=== PATIENT | male | born 1990 | race Caucasian/White ===

== ENCOUNTER → 2017-01-18 02:49 | Emergency (ER) | payer BC ==
[2017-01-18 08:22] LABS: Albumin 4.3 g/dL (3.2-5.2); BUN/Creatinine Ratio 10.8 (8-20); Calcium 9.7 mg/dL (8.6-10.3); EGFR African American 124.4 (>60); EGFR Non-African American 96.7 (>60); Globulin 2.8 g/dL (2-4); Potassium 3.9 mmol/L (3.5-5.0); Total Bilirubin 0.9 mg/dL (0.2-1.0); Total Protein 7.1 g/dL (6.4-8.9)
[2017-01-18 08:25] LABS: Hematocrit 46 % (42-52); Hemoglobin 15.9 g/dl (14.0-18.0); Mean Corpuscular HGB Conc 34 g/dl (31-36); Mean Corpuscular Hemoglobin 31 pg (27-31); Mean Corpuscular Volume 89 fL (80-94); Mean Platelet Volume 9 um3 (7.4-10.4); Red Blood Count 5.19 10^6/ul (4.0-5.4); Red Cell Distribution Width 12 % (10.5-15); Urine Bacteria Absent (Absent); Urine Bilirubin Negative (Negative); Urine Glucose Negative (Negative); Urine Nitrite Negative (Negative); White Blood Count 6.5 10^3/ul (3.5-10.8)
--- NOTE | 2017-01-19 10:06 | RAD ---
HISTORY: Chest pain COMPARISONS: None VIEWS: 4: Frontal dual-energy and lateral views of the chest. FINDINGS: CARDIOMEDIASTINAL SILHOUETTE: The cardiomediastinal silhouette is normal. SHOBHA: The shobha are normal. PLEURA: The costophrenic angles are sharp. No pleural abnormalities are noted. LUNG PARENCHYMA: The lungs are clear. ABDOMEN: The upper abdomen is clear. There is no subphrenic gas. BONES AND SOFT TISSUES: No bone or soft tissue abnormalities are noted. OTHER: None. IMPRESSION: NO ACTIVE CARDIOPULMONARY DISEASE.
--- NOTE | 2017-01-31 01:19 | ED ---
Abraham Bailey Nilda, scribed for Floyd Espinoza MD on 01/18/17 at 2318 . Abdominal Pain/Male - HPI Summary HPI Summary: This patient is a 26 year old M presenting to [facility] with a chief complaint of constant mild dull left flank pain that radiates to back for the past 2 days. Symptoms aggravated and alleviated by nothing. Patient reports fever (2 days), chills, occasional dizziness, and occasional SOB associated with pain. Patient denies burning with urination, frequency, penile discharge, cough, and edema. 1 week ago lymph nodes under armpits were swollen but have resolved. - History of Current Complaint Hx Obtained From: Patient Onset/Duration: Lasting Days - 2 days, Still Present Timing: Constant Location: Flank - Left Radiates: Yes Radiates to: Back Character: Dull Aggravating Factor(s): Nothing Alleviating Factor(s): Nothing Associated Signs And Symptoms: Positive: Fever, Dizzy PMH/Surg Hx/FS Hx/Imm Hx Cardiovascular History: Denies: Hx Hypertension GI History: Reports: Other GI Disorders - Rectal fissure - Surgical History Surgery Procedure, Year, and Place: ROSS Infectious Disease History: Denies: Traveled Outside the [place] in Last 30 Days - Family History Known Family History: Positive: Other - No DVT, PE - Social History Occupation: Employed Full-time - Agriculture Hx Tobacco Use: No Smoking Status (MU): Never Smoked Tobacco Review of Systems Positive: Fever - 2 days, Chills Positive: Shortness Of Breath - Occasional - associated with back pain. Negative: Cough Positive: flank pain - left. Negative: dysuria, discharge, frequency Positive: Other - Back pain. Negative: Edema Neurological: Other - Dizziness (occasional) All Other Systems Reviewed And Are Negative: Yes Physical Exam - Summary Physical Exam Summary: Physical Exam Findings Appearance: Well-appearing, Well-nourished Skin: Warm, Dry, No rash Eyes: Normal, PERRL, EOMI, sclera anicteric ENT: Normal Neck: Supple, nontender Respiratory: Clear to auscultation Cardiovascular: S1, S2, no murmur, no rub, no gallop Abdomen: Soft, nontender, no organomegaly Bowel sounds: Present Musculoskeletal: Normal, Strength/ROM Intact, no edema, pulses symmetrical Neurological: Normal, A&Ox3, cranial nerves 2-12 wnl, follows commands, gait not tested, sensation intact to pin and light touch Psychiatric: affect normal, behavior appropriate, dressed appropriately, judgment intact Triage Information Reviewed: Yes Diagnostics - Laboratory Lab Results: Lab Results 01/18/17 01/18/17 01/18/17 Range/Units 04:36 04:36 04:36 WBC 6.5 (3.5-10.8) 10^3/ul RBC 5.19 (4.0-5.4) 10^6/ul Hgb 15.9 (14.0-18.0) g/dl Hct 46 (42-52) % MCV 89 (80-94) fL MCH 31 (27-31) pg MCHC 34 (31-36) g/dl RDW 12 (10.5-15) % Plt Count 193 (150-450) 10^3/ul MPV 9 (7.4-10.4) um3 Neut % (Auto) 52.4 (38-83) % Lymph % (Auto) 33.1 (25-47) % Rapides % (Auto) 9.7 H (1-9) % Eos % (Auto) 4.3 (0-6) % Baso % (Auto) 0.5 (0-2) % Absolute Neuts (auto) 3.4 (1.5-7.7) 10^3/ul Absolute Lymphs (auto) 2.2 (1.0-4.8) 10^3/ul Absolute Monos (auto) 0.6 (0-0.8) 10^3/ul Absolute Eos (auto) 0.3 (0-0.6) 10^3/ul Absolute Basos (auto) 0 (0-0.2) 10^3/ul Absolute Nucleated RBC 0 10^3/ul Nucleated RBC % 0.1 D-Dimer, Quantitative (Less Than 230) ng/mL Sodium 138 (133-145) mmol/L Potassium 3.9 (3.5-5.0) mmol/L Chloride 104 (101-111) mmol/L Carbon Dioxide 30 (22-32) mmol/L Anion Gap 4 (2-11) mmol/L BUN 10 (6-24) mg/dL Creatinine 0.93 (0.67-1.17) mg/dL Est GFR ( Amer) 124.4 (>60) Est GFR (Non-Af Amer) 96.7 (>60) BUN/Creatinine Ratio 10.8 (8-20) Glucose 96 (70-100) mg/dL Calcium 9.7 (8.6-10.3) mg/dL Total Bilirubin 0.90 (0.2-1.0) mg/dL AST 16 (13-39) U/L ALT 18 (7-52) U/L Alkaline Phosphatase 84 (34-104) U/L Total Protein 7.1 (6.4-8.9) g/dL Albumin 4.3 (3.2-5.2) g/dL Globulin 2.8 (2-4) g/dL Albumin/Globulin Ratio 1.5 (1-3) Urine Color Yellow Urine Appearance Clear Urine pH 6.0 (5-9) Ur Specific Duncan 1.012 (1.010-1.030) Urine Protein Negative (Negative) Urine Ketones Negative (Negative) Urine Blood Negative (Negative) Urine Nitrate Negative (Negative) Urine Bilirubin Negative (Negative) Urine Urobilinogen Negative (Negative) Ur Leukocyte Esterase Negative (Negative) Urine WBC (Auto) Trace(0-5/hpf) (Absent) Urine RBC (Auto) Absent (Absent) Urine Bacteria Absent (Absent) Hyaline Casts Present H (Absent) Urine Glucose Negative (Negative) 01/18/17 Range/Units 04:36 WBC (3.5-10.8) 10^3/ul RBC (4.0-5.4) 10^6/ul Hgb (14.0-18.0) g/dl Hct (42-52) % MCV (80-94) fL MCH (27-31) pg MCHC (31-36) g/dl RDW (10.5-15) % Plt Count (150-450) 10^3/ul MPV (7.4-10.4) um3 Neut % (Auto) (38-83) % Lymph % (Auto) (25-47) % Rapides % (Auto) (1-9) % Eos % (Auto) (0-6) % Baso % (Auto) (0-2) % Absolute Neuts (auto) (1.5-7.7) 10^3/ul Absolute Lymphs (auto) (1.0-4.8) 10^3/ul Absolute Monos (auto) (0-0.8) 10^3/ul Absolute Eos (auto) (0-0.6) 10^3/ul Absolute Basos (auto) (0-0.2) 10^3/ul Absolute Nucleated RBC 10^3/ul Nucleated RBC % D-Dimer, Quantitative < 200 (Less Than 230) ng/mL Sodium (133-145) mmol/L Potassium (3.5-5.0) mmol/L Chloride (101-111) mmol/L Carbon Dioxide (22-32) mmol/L Anion Gap (2-11) mmol/L BUN (6-24) mg/dL Creatinine (0.67-1.17) mg/dL Est GFR ( Amer) (>60) Est GFR (Non-Af Amer) (>60) BUN/Creatinine Ratio (8-20) Glucose (70-100) mg/dL Calcium (8.6-10.3) mg/dL Total Bilirubin (0.2-1.0) mg/dL AST (13-39) U/L ALT (7-52) U/L Alkaline Phosphatase (34-104) U/L Total Protein (6.4-8.9) g/dL Albumin (3.2-5.2) g/dL Globulin (2-4) g/dL Albumin/Globulin Ratio (1-3) Urine Color Urine Appearance Urine pH (5-9) Ur Specific Duncan (1.010-1.030) Urine Protein (Negative) Urine Ketones (Negative) Urine Blood (Negative) Urine Nitrate (Negative) Urine Bilirubin (Negative) Urine Urobilinogen (Negative) Ur Leukocyte Esterase (Negative) Urine WBC (Auto) (Absent) Urine RBC (Auto) (Absent) Urine Bacteria (Absent) Hyaline Casts (Absent) Urine Glucose (Negative) Result Diagrams: 01/18/17 04:36 01/18/17 04:36 Lab Statement: Any lab studies that have been ordered have been reviewed, and results considered in the medical decision making process. - Radiology CXR Xray Interpretation: No Acute Changes - NAD Radiology Interpretation Completed By: ED Physician - EKG 0327 Cardiac Rate: NL EKG Rhythm: Sinus Rhythm EKG Interpretation: 62 bpm, normal axis, normal intervals - Additional Comments Diagnostic Additional Comments: D-Dimer: WNL Re-Evaluation - Re-Evaluation First Eval Re-Evaluation Time: 04:37 Comment: Discussed labs and plan for D/C. Abdominal Pain Fem Course/Dx - Course Assessment/Plan: This patient is a 26 year old M presenting to [facility] with a chief complaint of constant mild dull left flank pain that radiates to back for the past 2 days. Patient reports fever (2 days), chills, occasional dizziness, and occasional SOB associated with pain. Patient denies burning with urination, frequency, penile discharge, cough, and edema. 1 week ago lymph nodes under armpits were swollen but have resolved. D-dimer: wnl. CXR: NAD. EKG: [0327] NSR 62 bpm, normal axis, normal intervals. Dx of Left chest wall pain and left flank pain. D/C to home, no medications, heat and OTCS NSAIDs for discomfort. PCP f/u in one week. - Diagnoses Provider Diagnoses: Left flank pain, L-sided musculoskeletal chest wall pain Discharge - Discharge Plan Condition: Stable Disposition: HOME Referrals: No Primary Care Phys,NOPCP [Primary Care Provider] - The documentation as recorded by the Abraham lopez Nilda accurately reflects the service I personally performed and the decisions made by me, Floyd Espinoza MD.
== END | disposition home or self-care (01) ==
LOC: ED 02:49
DX: R10.84 Generalized abdominal pain (principal); R07.89 Other chest pain; R50.9 Fever, unspecified; R42 Dizziness and giddiness
CPT/HCPCS: 36415; 71020; 80053; 81003; 85025; 85379; 93005; 99283